=== PATIENT | female | born 1980 | race African-American/Black ===

== ENCOUNTER 2025-09-08 09:54 | Day surgery (SDC) | payer MEDICAID, SELFPAY ==
[2025-09-08 10:23] LABS: Ur HCG Qualitative* Negative (Negative)
[2025-09-08 10:29] VITALS: BMI 24.4
[2025-09-08 10:31] VITALS: BP 104/70; PULSE 70; RESP 20; TEMP 36.9; O2SAT 98
[2025-09-08] MEDS: SODIUM CHLORIDE 0.9 % (FLUSH) 10 ML SYRINGE IVF (10:42)
[2025-09-08] MEDS: LACTATED RINGERS 1000 ML 1,000 ML 75 ML IV (10:42)
--- NOTE | 2025-09-08 11:15 | CRLHL7_ITS ---
For Patients: As a result of the Cures Act, medical imaging exams and procedure reports are released immediately into your electronic medical record. You may view this report before your referring provider. If you have questions, please contact your health care provider. BREAST WIRE LOCALIZATION USING ULTRASOUND GUIDANCE CLINICAL HISTORY: Indeterminate calcifications, excision recommended. LATERALITY: Left breast. LESION: Biopsied cluster of calcifications. 7 o`clock 2 cm from the nipple left breast. HydroMARK clip. LOCALIZATION WIRE: [place] hookwire. TECHNIQUE: The localization wire was placed using real-time ultrasound guidance with image documentation. Cranial-caudal and medial-lateral digital mammograms were obtained after localization wire placement. CONSENT and TIME OUT: The procedure, risks, and alternatives were explained to the patient and a consent was signed. [place] Protocol was followed including pre-procedure verification that relevant information/documentation was available, reviewed and properly matched to the patient; consent accurate and complete; and equipment and supplies available. Time Out was conducted just prior to starting procedure to verify the four required elements: patient identity, correct side/site marked (if applicable), procedure, relevant images/results properly labeled and displayed (if applicable). PROCEDURE: The skin was prepped with ChloraPrep and 7 cc of 1% lidocaine was injected for local anesthesia. The localization wire was placed within or near the targeted breast lesion using ultrasound guidance. The patient tolerated the procedure well. PROXIMITY OF WIRE TO LESION: The wire is present adjacent to the biopsy clip and through the small post biopsy hematoma. IMPRESSION: Successful breast wire localization. ACR not applicable Dictated by Arthur Moya MD @ 09/08/2025 12:30:11 PM/erika [place]/Dictated by: Arthur Moya MD @ 09/08/2025 12:30:00 PM (Electronically Signed)
--- NOTE | 2025-09-08 11:43 | W.PM.H&PU ---
History & Physical Update History & Physical Update H&P Reviewed and patient assessed: No changes noted
--- NOTE | 2025-09-08 11:47 | PM.GSPRC ---
Operative Note Date of procedure: 09/08/25 Pre-op diagnosis: Indeterminate mass, left breast Post-op diagnosis: Same Type of Procedure: Excisional biopsy left breast, with preoperative wire localization Indications: The patient is a 45-year-old female who underwent her 1st screening mammogram this year. She was found to have an area of suspicious calcifications in the left breast at 6 o'clock, 2 cm from the nipple. She underwent core needle biopsy. Pathology showed an indeterminate epithelial proliferation associated with calcifications. Excisional biopsy was recommended to rule out atypical hyperplasia or DCIS. Procedure Description: After discussing the risks and benefits of the procedure, the patient signed informed consent.? The operative site was marked and the patient was brought to the operating room and placed on the operating table in supine position.? Care was taken to pad the patient's pressure points.?? The patient was then given sedation by anesthesia.?? The operative site was then prepped and draped in the usual sterile fashion.? A time-out was then performed. A curvilinear incision was made at the lower outer border of the areola. Dissection was taken down into the subcutaneous tissue using cautery. I 1st dissected toward the localization wire and once this was able to be grasped, I pulled this to the incision. The patient was noted to have a hematoma from her biopsy. Breast tissue was quite firm, however I was able to dissect out a swath of tissue around the wire using cautery. The cavity was entered and clot emerged. The HydroMARK clip actually emerged from the cavity as well. This was stable to sent with the specimen. The cavity was closed with a stitch. I continued my dissection, around the biopsy cavity and wire. The specimen was then inked for orientation and sent to mammography. The wire was noted within the specimen, as suspected, the HydroMARK clip that had emerged from the cavity which was sent along side the specimen, was noted on the x-ray. The wound was examined for hemostasis which was excellent. I did undermine the breast tissue superiorly and medially along the chest wall to help it better fill the space. Once this was done, the skin was closed with 3-0 Vicryl dermal and 4-0 Monocryl running subcuticular suture. Sterile dressings were applied. The patient was then woken and transported to the recovery area in stable condition. ? The patient tolerated the procedure well. Findings: Hematoma noted at biopsy site. The entire biopsy cavity removed, however; HydroMARK clip contained within hematoma which came out of the cavity was saved and sent along with the specimen. Surgeon: Darlene Dejesus MD Estimated blood loss (mL): 10 Additional Specimen Information: Left breast mass, 6:00 o'clock, 2 cm from the nipple Disposition: same day
--- NOTE | 2025-09-08 12:00 | CRLHL7_ITS ---
For Patients: As a result of the Century Cures Act, medical imaging exams and procedure reports are released immediately into your electronic medical record. You may view this report before your referring provider. If you have questions, please contact your health care provider. SEE ULTRASOUND-GUIDED LEFT BREAST WIRE LOCALIZATION PERFORMED SAME DAY. GA/Dictated by: Arthur Moya MD @ 09/08/2025 11:32:00 AM (Electronically Signed)
[2025-09-08] MEDS: LIDOCAINE 1% MDV 20 ML INJECTION (12:20)
[2025-09-08] MEDS: BUPIVACAINE 0.25% 30 ML INJECTION (12:20)
--- NOTE | 2025-09-08 12:41 | CRLHL7_ITS ---
For Patients: As a result of the Cures Act, medical imaging exams and procedure reports are released immediately into your electronic medical record. You may view this report before your referring provider. If you have questions, please contact your health care provider. CLINICAL HISTORY: Excisional biopsy left breast. COMPARISON: 09/08/2025, 08/16/2025. FINDINGS: Two views left breast specimen submitted. Localization wire is present. The HydroMARK clip fell out of the specimen and is located on the film. IMPRESSION: The localization wire and biopsy clip were both removed along with the residual calcifications. ACR not applicable. Dictated by Arthur Moya MD @ 09/08/2025 3:12:25 PM/erika GA/Dictated by: Arthur Moya MD @ 09/08/2025 3:12:00 PM (Electronically Signed)
[2025-09-08 13:00] VITALS: BP 97/69; PULSE 77; RESP 16; TEMP 36.6; O2SAT 100
--- NOTE | 2025-09-08 13:04 | P.ANES_ITS ---
Anesthesia Charges Start Date/Time Anesthesia Start Date: 09/08/25 Anesthesia Start Time: 11:40 Stop Date/Time Anesthesia Stop Date: 09/08/25 Anesthesia Stop Time: 13:04 Coding CPT Codes CPT Codes: ANESTH SKIN EXT/PER/ATRUNK - 98526 ([id number]) P1 - NORMAL HEALTHY PATIENT, QX - MACHINE MAINTENANCE MECHANIC BELKYS W/ MED DIRECTION, QK - HARVEST CONTRACTOR 2-4 CNCRNT ANES PROC
--- NOTE | 2025-09-08 13:04 | W.ANESCHARGE ---
Anesthesia Charges Start Date/Time Anesthesia Start Date: 09/08/25 Anesthesia Start Time: 11:40 Stop Date/Time Anesthesia Stop Date: 09/08/25 Anesthesia Stop Time: 13:04 Coding CPT Codes CPT Codes: ANESTH SKIN EXT/PER/ATRUNK - 57348 ([id number]) P1 - NORMAL HEALTHY PATIENT, QX - ALLEY CLEANER BELKYS W/ MED DIRECTION, QK - IVORY POLISHER 2-4 CNCRNT ANES PROC
[2025-09-08 13:15] VITALS: BP 100/69; PULSE 61; RESP 16; O2SAT 100
[2025-09-08 13:30] VITALS: BP 108/72; PULSE 60; RESP 16; O2SAT 100
[2025-09-08] MEDS: HYDROCODONE-ACETAMIN 5-325 MG 1 TAB PO (13:49)
[2025-09-08 13:50] VITALS: BP 111/63; PULSE 63; RESP 16; O2SAT 98
--- NOTE | 2025-09-08 14:25 | P.ANES_ITS ---
Anesthesia Charges Start Date/Time Anesthesia Start Date: 09/08/25 Anesthesia Start Time: 11:40 Stop Date/Time Anesthesia Stop Date: 09/08/25 Anesthesia Stop Time: 13:04 Coding CPT Codes CPT Codes: ANESTH SKIN EXT/PER/ATRUNK - 17743 ([id number]) P1 - NORMAL HEALTHY PATIENT, QK - ASSISTANT PROFESSOR OF SURGERY 2-4 CNCRNT ANES PROC, QX - MAGNETIZER SVJez W/ MED DIRECTION
--- NOTE | 2025-09-08 14:25 | W.ANESCHARGE ---
Anesthesia Charges Start Date/Time Anesthesia Start Date: 09/08/25 Anesthesia Start Time: 11:40 Stop Date/Time Anesthesia Stop Date: 09/08/25 Anesthesia Stop Time: 13:04 Coding CPT Codes CPT Codes: ANESTH SKIN EXT/PER/ATRUNK - 92071 ([id number]) P1 - NORMAL HEALTHY PATIENT, QK - HOLE DIGGER OPERATOR 2-4 CNCRNT ANES PROC, QX - MACHINE DEICER ELEMENT WINDER SVJez W/ MED DIRECTION
== END 2025-09-08 14:08 | disposition home or self-care (01) ==
PROVIDERS: Anesthesiology; PCP Family Medicine; Visit Provider Surgery
PROC: (CPT 19125; principal; 2025-09-08 12:00)
PROC: (CPT 19125; 2025-09-08 12:00)
DX: D05.12 Intraductal carcinoma in situ of left breast (principal); Z17.0 Estrogen receptor positive status [ER+]
CPT/HCPCS: 19125; 00400; 19285; 76942; 77065; 81025; J2003; A9270; C1769; J0665; J0690; J1100; J1885; J2250; J2405; J2704; J3010; J3490; J7120